=== PATIENT | female | born 1985 | race African-American/Black ===

== ENCOUNTER 2025-04-14 10:31 | Emergency (ER) | payer SELFPAY ==
[~2025-04-14] VITALS: Ht 154.9 cm; Wt 64.0 kg
[2025-04-14 10:34] VITALS: O2SAT 99
[2025-04-14] MEDS: ACETAMINOPHEN 325MG TABLET PO ONE (12:30)
[2025-04-14] MEDS: IBUPROFEN 600MG TABLET PO ONE (14:30)
[2025-04-14] MEDS ORDERED: IBUP-2029 MT (14:43)
[2025-04-14] MEDS ORDERED: LIDO-53 TP (14:43)
[2025-04-14] MEDS: BACITRACIN ZINC OINT UDPKT TOP ONE (15:53)
[2025-04-14 16:00] VITALS: BP 108/68; PULSE 86; RESP 18; TEMP 37; O2SAT 99
== END 2025-04-14 16:03 | disposition home or self-care (01) ==
LOC: ER 10:31
DX: S80.211A Abrasion, right knee, initial encounter (principal); S50.311A Abrasion of right elbow, initial encounter; M25.572 Pain in left ankle and joints of left foot; Z79.899 Other long term (current) drug therapy; V89.2XXA Person injured in unspecified motor-vehicle accident, traffic, initial encounter; Y93.01 Activity, walking, marching and hiking; Y92.89 Other specified places as the place of occurrence of the external cause; Y92.481 Parking lot as the place of occurrence of the external cause
CPT/HCPCS: 99284; 70450; 73080; 73610; 73630; A6449